=== PATIENT | female | born 1940 | race Asian ===

== ENCOUNTER 2017-03-06 12:14 | Emergency (ER) | payer MEDICARE, MEDICAID ==
[~2017-03-06] VITALS: Wt 47.3 kg
[2017-03-06] MEDS ORDERED: SOD CHLORIDE 0.9% 1,000 ML IV STA (12:29)
[2017-03-06] MEDS ORDERED: FENTAnyl 50 MCG/ML VIAL IV ONE (12:30)
[2017-03-06] MEDS ORDERED: ETOMIDATE 20 MG INJ ONE (14:17)
[2017-03-06] MEDS ORDERED: PROPOFOL 20 ML ONE (14:17)
[2017-03-06] MEDS ORDERED: PROPOFOL 100 ML IV ONE (14:30)
[2017-03-06] MEDS ORDERED: PROPOFOL 200 MG INJ IV ONE (14:30)
[2017-03-06] MEDS ORDERED: ETOMIDATE 20 MG INJ IV ONE (14:30)
[2017-03-06] MEDS ORDERED: IBUP-1542 PO ×2 (14:59→15:21)
--- NOTE | 2017-03-06 15:16 | RADRPT ---
PROCEDURE: XR Shoulder. CLINICAL INDICATION: Shoulder pain TECHNIQUE: 3 views of the right shoulder are available for review. COMPARISON: None available FINDINGS: There is elevation of the humeral head and remodelling of the undersurface of the acromion related t o chronic rotator cuff pathology. The glenohumeral joint is otherwise maintained. There is narrowing of the glenohumeral joint and mild productive change. No acute osseous abnormality is seen. There i s dystrophic ossification at the lateral aspect of the acromion. Moderate AC joint arthrosis. Bone m ineral density is diminished. The visualized portions of the right lung are clear. IMPRESSION: 1. Moderate rotator cuff arthropathy. The humeral head appears grossly maintained with respect to t he glenoid. If clinical suspicion persists, consider an axillary view or CT. 2. No acute osseous abnormality. 3. Moderate AC joint arthrosis. 4. Remodelling of the humeral head, likely sequelae of repetitive trauma. RPTAT: [facility] .Jai Soto MD, MD Date Time Electronically viewed and signed by .Jai Soto MD, on 03/06/2017 15:16 .d/
[2017-03-06 16:10] VITALS: BP 138/66; PULSE 85; RESP 15
--- NOTE | 2017-03-07 12:46 | ERD ---
ER Documentation Chief Complaint Chief Complaint r. shoulder pain [facility] hx of dislocr r shoulder HPI [id number] woman brought in by daughter for right shoulder dislocation. She suffered from right shoulder dislocation about 2 weeks ago it was reduced after conscious sedation in the emergency department and placed in a upper extremity sling, patient has an orthopedic appointment scheduled for possible operative intervention and stabilization of the right shoulder joint. Daughter states she had a accidental fall while walking today and fell onto her right shoulder and dislocated it yet again, the episode was witnessed there was no head or neck injury. There was no loss of consciousness, no complaints of chest pain or shortness of breath, no paresis or paresthesias. ROS All systems reviewed and are negative except as per history of present illness. Medications Home Meds Active Scripts Ibuprofen* (Ibuprofen*) 600 Mg Tablet, 400 MG PO Q8 Y for PAIN AND/OR INFLAMMATION, #30 TAB Prov:JANEEN RINCON MD 03/06/17 Reported Medications Ibuprofen* (Ibuprofen*) 600 Mg Tablet, 600 MG PO Q6H Y for PAIN, TAB 03/06/17 Allergies Allergies: Coded Allergies: No Known Allergy (Unverified , 03/06/17) PMhx/Soc Hypertension, arthritis Medical and Surgical Hx: pt denies Surgical Hx Hx Miscellaneous Medical Probl: Yes (2 previous shoulder dislocations) Hx Alcohol Use: No Hx Substance Use: No Hx Tobacco Use: No Smoking Status: Never smoker FmHx Family History: No diabetes Physical Exam Vitals Vital Signs Date Time Temp Pulse Resp B/P Pulse Ox O2 Delivery O2 Flow Rate FiO2 03/06/17 16:10 85 15 138/66 100 Room Air 03/06/17 14:15 99 2.0 03/06/17 14:00 80 13 139/68 100 Nasal Cannula 2.0 03/06/17 12:16 99.6 96 20 127/62 99 Physical Exam GENERAL: Well-developed, well-nourished, mild discomfort HEENT: Moist mucous membranes, pink conjunctiva, no cervical spine tenderness or step-off deformities, no goiter, no jaundice or icterus, extraocular movements intact without pain. No submandibular induration, and no pharyngeal erythema NEURO: Alert and oriented 3, cranial nerves II through XII intact bilaterally, pupils equal round reactive to light, no focal deficits or facial asymmetry, sensation intact distally Strength 5/5 in upper and lower extremities bilaterally CARDIAC: Regular rate and rhythm, no murmurs rubs or gallops LUNGS: Clear bilaterally no wheezing crackles or stridor ABDOMEN: Soft nontender, no guarding, no rigidity, no rebound, no psoas sign no obturator sign. Normoactive bowel sounds SKIN: Warm and dry to touch, no abrasions, contusions, or hematomas, no lacerations, no ecchymosis, no target lesions, and without ulcers EXTREMITIES: Anterior shoulder dislocation on the right with the proximal humerus prominent over the anterior shoulder complex, no clubbing cyanosis or edema, calves are bilaterally symmetrical, no Homans sign, no popliteal cord sign. Distal pulses equal and bilateral PSYCH: Normal affect without agitation or irritability Results 24 hrs Current Medications Medications (Trade) Dose Ordered Sig/Kasi Route PRN Reason Start Time Stop Time Status Last Admin Dose Admin Sodium Chloride (NS) 1,000 ml @ 1,000 mls/hr Q1H STAT IV 03/06/17 12:29 03/06/17 13:28 DC 03/06/17 13:11 Fentanyl 100 mcg 100 mcg ONCE ONCE IV 03/06/17 12:30 03/06/17 12:31 DC 03/06/17 13:12 Propofol (Diprivan) 100 ml @ 0 mls/hr TITRATE ONCE IV 03/06/17 14:30 03/06/17 15:12 DC Propofol (Diprivan) 200 mg ONCE ONCE IV 03/06/17 14:30 03/06/17 14:31 DC 03/06/17 14:31 Etomidate (Amidate) 20 mg ONCE ONCE IV 03/06/17 14:30 03/06/17 14:31 DC Etomidate 20 mg 20 mg STK-MED ONCE .ROUTE 03/06/17 14:17 03/06/17 14:18 DC Propofol (Diprivan) 20 ml @ ud STK-MED ONCE .ROUTE 03/06/17 14:17 03/06/17 14:18 DC Procedures/MDM IV line was established, patient placed on case monitor rhythm strip revealed a sinus rhythm at about 80 bpm with upright P and T waves. Patient was afebrile. Patient was given acetaminophen 1 g p.o. by daughter and pain resolved, she was also given 1 L normal saline intravenously. Manual reduction attempted although patient was actively resisting and cannot be properly reduced without moderate conscious sedation despite my attempts. Procedural Sedation: Pre-assessment performed. See preceding complete history and physical for details. Time out performed. See the written sedation documentation for details. Risk, benefits and alternatives were discussed with the patient. Patient agreed to this conscious sedation. ASA Class: 1 Mallampati Score: Class I Medication(s): Etomidate and propofol Complications: No hypoxic or apneic events Recovered without incident. A minimum of 21 minutes of face to face time was performed including preparation, sedation and recovery time. Shoulder Reduction by me: Anesthesia: Fentanyl 100 mcg IV 1 Location: Right shoulder Technique: Traction countertraction technique Results: [facility] normal anatomic positioning Compl: Neurovascularly intact post procedure. Shoulder immobilizer was placed to the right upper extremity, post reduction the extremity was neurovascularly intact. Distal sensation intact and skin warm and dry. Post reduction right shoulder 3V x-ray interpreted by me: Bones: No acute fracture Joints: Properly aligned shoulder complex with normal appearing glenohumeral joint, positive osteoarthritic changes noted Foreign body: None Patient feels much better at this time, and vital signs are normal, symptoms have improved. I did give strict instructions to return to the ED if symptoms continue or worsen, patient will otherwise follow-up with primary care physician. Patient understood instructions and agreed to plan. Disclaimer: Inadvertent spelling and grammatical errors are likely due to EHR/ dictation software use and do not reflect on the overall quality of patient care. Also, please note that the electronic time recorded on this note does not necessarily reflect the actual time of the patient encounter. Departure Diagnosis: Primary Impression: Shoulder dislocation Encounter type: initial encounter Laterality: right Qualified Code: S43.004A - Dislocation of right shoulder joint, initial encounter Condition: Good Patient Instructions: Dislocation: Shoulder (Reduced), Hematoma JANEEN RINCON MD Mar 07, 2017 12:46
== END 2017-03-06 16:10 | disposition home or self-care (01) ==
LOC: E/R 12:14
DX: S43.004A Unspecified dislocation of right shoulder joint, initial encounter (principal); I10 Essential (primary) hypertension; W18.39XA Other fall on same level, initial encounter; Y92.9 Unspecified place or not applicable
CPT/HCPCS: 23650; 73030; 94770; 96374; 96375; 99285; J3010; J7030